=== PATIENT | male | born 1980 | race African-American/Black ===

== ENCOUNTER 2017-08-08 08:59 | Emergency (ER) | payer OTHER ==
[~2017-08-08] VITALS: Ht 182.9 cm; Wt 97.5 kg
[~2017-08-08 08:59] MED LIST: BACTROBAN CREAM30 G1 TOP; DOXYCYCLINE 10100 M1 PO; PERCOCET 5-3251 EACH PO
[2017-08-08 09:02] VITALS: BP 149/108
[2017-08-08] MEDS ORDERED: PREDNISONE 20 M20 MG PO (09:14)
[2017-08-08] MEDS ORDERED: GUAIFEN-CODEINE10 ML PO (09:15)
[2017-08-08] MEDS ORDERED: IBUPROFEN 400400 M2 PO (09:15)
[2017-08-08] MEDS ORDERED: FLONASE 0.05%50 MCG NASAL (10:14)
[2017-08-08] MEDS ORDERED: MOBIC15 MG PO (10:14)
== END 2017-08-08 10:25 | disposition home or self-care (01) ==
LOC: ER 08:59
DX: S63.615A Unspecified sprain of left ring finger, initial encounter (principal); J01.90 Acute sinusitis, unspecified; K21.9 Gastro-esophageal reflux disease without esophagitis; F12.10 Cannabis abuse, uncomplicated; Z87.11 Personal history of peptic ulcer disease; Z88.8 Allergy status to other drugs, medicaments and biological substances; X58.XXXA Exposure to other specified factors, initial encounter; Y93.89 Activity, other specified; Y92.89 Other specified places as the place of occurrence of the external cause; Y99.8 Other external cause status